=== PATIENT | male | born 1975 | race Two or more races ===

== ENCOUNTER 2017-09-15 13:34 | Emergency (ER) | payer MEDICAID ==
[~2017-09-15] VITALS: Ht 177.8 cm; Wt 146.0 kg
[2017-09-15 15:17] LABS: BASOPHILS % 0.6 % (0.0-2.0); EOSINOPHILS % 1.7 % (0.0-5.0); HEMATOCRIT. 48.7 % (42.0-52.0); HEMOGLOBIN. 16.1 g/dL (14.0-18.0); LYMPHOCYTES % 15.1 % (20.0-50.0); MEAN CORPUSCULAR HEMOGLOBIN 30.2 pg (28.0-32.0); MEAN CORPUSCULAR VOLUME 91.6 fL (80.0-94.0); MEAN PLATELET VOLUME 7.5 fl (7.4-10.4); MONOCYTES % 11.1 % (2.0-8.0); NEUTROPHILS % 71.5 % (40.0-76.0); PLATELET 254 x1000/uL (130-400); RED BLOOD CELL COUNT 5.31 mill/uL (4.7-6.1); RED CELL DISTRIBUTION WIDTH 16.6 % (11.6-14.6)
[2017-09-15 15:19] LABS: INR 1.1; PROTHROMBIN TIME 11.5 sec (9.1-11.1)
[2017-09-15 15:20] LABS: CHLORIDE 98 mEq/L (98-107)
[2017-09-15] MEDS ORDERED: IOHEXOL-350 100 ML BOTTLE ONE (21:55)
[2017-09-15 22:52] VITALS: BP 119/65
== END 2017-09-15 22:54 | disposition home or self-care (01) ==
LOC: ER 13:34
DX: R60.9 Edema, unspecified (principal); R06.02 Shortness of breath; M79.89 Other specified soft tissue disorders; I10 Essential (primary) hypertension
CPT/HCPCS: 36415; 71275; 80053; 83880; 84484; 85025; 85610; 93005; 99285; Q9967